=== PATIENT | male | born 1995 | race African-American/Black ===

== ENCOUNTER 2017-09-15 21:26 | Emergency (ER) | payer SELFPAY | END 2017-09-15 22:19 | disposition left against medical advice (07) | LOC: ERS 21:26 | DX: Z53.21 Procedure and treatment not carried out due to patient leaving prior to being seen by health care provider (principal) | CPT/HCPCS: 87804 ==

== ENCOUNTER 2018-02-24 10:33 | Emergency (ER) | payer SELFPAY ==
--- NOTE | 2018-02-24 11:52 | RAD ---
RIGHT HAND 3 VIEWS: HISTORY: Right hand pain, punched a wall. FINDINGS: There is an oblique fracture involving the head of the 4th metacarpal without significant displacemen t. POS: [facility]
== END 2018-02-24 12:28 | disposition home or self-care (01) ==
LOC: ERS 10:33
DX: S62.365A Nondisplaced fracture of neck of fourth metacarpal bone, left hand, initial encounter for closed fracture (principal); F41.9 Anxiety disorder, unspecified; F32.9 Major depressive disorder, single episode, unspecified; F17.210 Nicotine dependence, cigarettes, uncomplicated; W22.01XA Walked into wall, initial encounter
CPT/HCPCS: 26600

== ENCOUNTER 2018-04-10 10:24 | Emergency (ER) | payer SELFPAY ==
[2018-04-10] MEDS ORDERED: Lidocaine 1% PF 5 ML VIAL ONE (11:07)
[2018-04-10] MEDS ORDERED: cefTRIAXone\\ROCEPHIN 250 MG VIAL ONE (11:07)
[2018-04-10 11:19] LABS: Bilirubin Negative (Negative); Blood, Urine Trace (Negative); Clarity CLOUDY (Clear); Glucose, Urine (Dipstick) Negative (Negative); Leukocyte Moderate (Negative); Nitrite Negative (Negative); Protein, Urine (Dipstick) Negative (Neg-Trace); Urobilinogen 0.2 mg/dL (0.2-1.0); pH, Urine 5.5 (5.0-9.0)
[2018-04-10 11:22] LABS: Bacteria/HPF None Seen HPF (None Seen); Hyaline Casts/LPF 0-3 HYALINE CAST LPF (0-3 Hyaline); Squamous Epithelial None Seen HPF (0-3)
[2018-04-13 01:51] LABS: Chlamydia by PCR DETECTED (NotDetected); GC by PCR DETECTED (NotDetected)
== END 2018-04-10 11:07 | disposition home or self-care (01) ==
LOC: ERS 10:24
DX: N34.1 Nonspecific urethritis (principal); F32.9 Major depressive disorder, single episode, unspecified; F17.210 Nicotine dependence, cigarettes, uncomplicated
CPT/HCPCS: 81003; 81015; 87491; 87591; 96372; J0696; J2001

== ENCOUNTER 2018-06-01 14:52 | Emergency (ER) | payer SELFPAY ==
[2018-06-01 15:17] LABS: Bilirubin Negative (Negative); Blood, Urine Small (Negative); Clarity CLOUDY (Clear); Glucose, Urine (Dipstick) Negative (Negative); Leukocyte Large (Negative); Nitrite Negative (Negative); Protein, Urine (Dipstick) Negative (Neg-Trace); Specific Gravity, Urine 1.022 (1.002-1.036); Urobilinogen 0.2 mg/dL (0.2-1.0); pH, Urine 5.5 (5.0-9.0)
[2018-06-01 15:19] LABS: Bacteria/HPF None Seen HPF (None Seen); Hyaline Casts/LPF 0-3 HYALINE CAST LPF (0-3 Hyaline); Pathc Cast-AUWi Flag 0.14 (0-2.49); Squamous Epithelial None Seen HPF (0-3)
[2018-06-05 04:17] LABS: Chlamydia by PCR DETECTED (NotDetected); GC by PCR DETECTED (NotDetected)
== END 2018-06-01 16:43 | disposition home or self-care (01) ==
LOC: ERS 14:52
DX: R30.0 Dysuria (principal); F41.9 Anxiety disorder, unspecified; F32.9 Major depressive disorder, single episode, unspecified; Z87.891 Personal history of nicotine dependence
CPT/HCPCS: 81003; 81015; 87086; 87491; 87591; 99281

== ENCOUNTER 2019-07-04 22:08 | Emergency (ER) | payer SELFPAY ==
[2019-07-04] MEDS ORDERED: Ketorolac Tromethamine 60 MG/2 ML VIAL ONE (22:53)
== END 2019-07-04 23:30 | disposition home or self-care (01) ==
LOC: ERS 22:08
DX: R51 Headache (principal); Z87.891 Personal history of nicotine dependence
CPT/HCPCS: 96372; 99281; J1885